=== PATIENT | male | born 1965 | race Asian ===

== ENCOUNTER 2023-05-18 00:01 | Emergency (ER) | payer MEDICAID ==
[~2023-05-18] VITALS: Ht 160 cm; Wt 58.2 kg
[2023-05-18 00:07] VITALS: BP 193/115; PULSE 98; RESP 16; TEMP 98; O2SAT 97
== END 2023-05-18 00:24 ==
LOC: ER 00:04
DX: I10 Essential (primary) hypertension (principal)
CPT/HCPCS: 99283